=== PATIENT | female | born 2000 | race Caucasian/White ===

== ENCOUNTER 2022-02-26 20:33 | Emergency (ER) | payer OTHER, SELFPAY ==
[2022-02-26 20:37] VITALS: BP 118/76; PULSE 84; RESP 18; TEMP 36.1; O2SAT 98
--- NOTE | 2022-02-26 21:03 | ED.GENADULT ---
HPI - General Adult General Chief complaint: Sore Throat Stated complaint: RIGHT SIDE OF THROAT INFECTED Time Seen by Provider: 02/26/22 20:43 History of Present Illness HPI narrative: This 21-year-old female comes in with sore throat that began a couple days ago. She went to urgent care today and had a negative strep test but was encouraged to come here because of the appearance of her tonsils. She states that she has sore throat but no cough or nasal congestion. She did note some purulence on her tonsils along with a sore throat. She does not report any shortness of breath. Prior to this she has been in good health. Related Data Home Medications Medication Instructions Recorded Confirmed No Known Home Medications 02/26/22 02/26/22 Allergies Allergy/AdvReac Type Severity Reaction Status Date / Time No Known Drug Allergies Allergy Verified 02/26/22 18:05 Review of Systems Status of ROS: Reports: 10 or more systems reviewed and unremarkable except as noted in History and below Narrative: Constitutional: No fevers, no weight gain or loss. Eyes: No discharge. No vision changes. HENT: No congestion, no ear pain. Sore throat as described above. Cardiovascular: No chest pain, no palpitations. Respiratory: No shortness of breath, no wheezes, no cough. Gastrointestinal: No abdominal pain, no vomiting, no diarrhea. Genitourinary: No dysuria, no hematuria. Musculoskeletal: Normal range of motion. Skin: No rashes, no pruritis. Neurological: No dizziness, weakness, sensory change, speech change. Endo/Heme/Allergies: No bruising or bleeding. No polydipsia. Pysch: no suicidality, no anxiety, no insomnia. All other systems reviewed and are negative. PFSH PFSH Social History Smoking Status: Never smoker How often do you have a drink containing alcohol: never AUDIT-C Alcohol total score: 0 Non-prescribed substance use: denies use Exam Narrative: Exam Narrative: Constitutional: Well-developed, well-nourished, no acute distress. HEENT: Normocephalic, atraumatic. Oropharynx shows bilateral tonsillar hypertrophy with exudate. There is no muffled voice. She does not have trismus. There is no cervical anterior lymphadenopathy when palpating her neck. Neck: Normal range of motion. Nontender. Supple. Heart: Intact distal pulses. Lungs: No chest discomfort. No wheezes, rhonchi, or rales. Abdomen: Nontender. Back: Normal range of motion. Extremities: Normal range of motion. No injury. Skin: Intact. No rash. Warm. No erythema or pallor. Neurologic: No altered sensation. No weakness. Alert and oriented. Psychiatric: No suicidality. No anxiety or depression. No insomnia. Nursing notes and vitals signs are reviewed. Const: Vital Signs, click to edit/add: Vital Signs - 24 hr 02/26/22 20:37 Temperature 97.0 F L Pulse Rate [Left P ulse Oximeter] 84 Respiratory Rate 18 Blood Pressure [Le ft Upper Arm] 118/76 Pulse Oximetry 98 Oxygen Delivery Me thod Room Air Course Vital Signs Vital signs: Initial Vital Signs Temperature 97.0 F L 02/26/22 20:37 Temperature Source Temporal Artery Scan 02/26/22 20:37 Pulse Rate 84 02/26/22 20:37 Respiratory Rate 18 02/26/22 20:37 Blood Pressure 118/76 02/26/22 20:37 Blood Pressure Mean 90 02/26/22 20:37 Blood Pressure Position Sitting 02/26/22 20:37 Pulse Oximetry 98 02/26/22 20:37 Oxygen Delivery Method 02/26/22 20:37 Vital Signs Temperature 97.0 F L 02/26/22 20:37 Pulse Rate 84 02/26/22 20:37 Respiratory Rate 18 02/26/22 20:37 Blood Pressure 118/76 02/26/22 20:37 Pulse Oximetry 98 02/26/22 20:37 Oxygen Delivery Method 02/26/22 20:37 Temperature 97.0 F L 02/26/22 20:37 Pulse Rate 84 02/26/22 20:37 Respiratory Rate 18 02/26/22 20:37 Blood Pressure 118/76 02/26/22 20:37 Pulse Oximetry 98 02/26/22 20:37 Oxygen Delivery Method 02/26/22 20:37 Medical Decision Making MDM Narrative Medical decision making narrative: This patient comes in with a sore throat and has enlarged tonsils which are not typical for her. The tonsils are rather symmetric can are not impeding upon the uvula. There is no sign of airway compromise. She does not have any muffled voice or trismus. She does not have any palpable cervical lymphadenopathy. She has not had any fevers. This patient is not showing any signs or symptoms suspicious for a peritonsillar abscess. I did describe findings that would indicate further need for workup and evaluation in this regard. Nevertheless she does have symptoms that are suspicious for a tonsillitis that may benefit from an antibiotic. A prescription for Augmentin is provided. She also received few tablets of Toradol for pain relief. The patient was given a oral dose of dexamethasone 10 mg in the emergency department also. Discharge Plan Discharge Clinical Impression: Acute tonsillitis Patient Disposition: Home, Self-Care Condition: Stable Instructions: Tonsillitis (ED) Additional Instructions: Take medication as needed and indicated. Return if worsening symptoms occur such as muffled voice or difficulty opening the mouth or fever. Follow up with MD otherwise as needed. Prescriptions: No Action No Known Home Medications Follow Up/Referrals: Rashad Bardales MD [Primary Care Provider] - Stand Alone Forms: [email or web address] Info Instructions
[2022-02-26] MEDS: dexAMETHasone 10 MG/ML inj PO (21:18)
== END 2022-02-26 21:32 | disposition home or self-care (01) ==
PROVIDERS: Emergency Provider Emergency Medicine Emergency Medical Services; PCP Family Medicine
DX: J03.90 Acute tonsillitis, unspecified (principal)
CPT/HCPCS: 99283; 99284; J1100

== ENCOUNTER 2022-06-20 20:39 | Emergency (ER) | payer OTHER, SELFPAY ==
[2022-06-20 20:47] VITALS: BP 133/83; PULSE 78; RESP 18; TEMP 36.6; O2SAT 97; BMI 27.9
[2022-06-20 21:30] VITALS: BP 112/73; PULSE 75; RESP 16; O2SAT 95
--- NOTE | 2022-06-20 21:33 | ED.CHESTPAIN ---
HPI - Chest Pain General Chief Complaint: Chest Pain Stated Complaint: Chest pain, Shooting pain in the R side of neck Time Seen by Provider: 06/20/22 21:11 History of Present Illness HPI narrative: 21-year-old young woman here with Mom with concern of chest pain. Woke this morning with some right-sided neck pain which she demonstrates to the sternocleidomastoid. Does not recall any particular injury. Over the last 4-5 hours though has had development of some left-sided chest pain. With either of these pain she does not note exacerbating or relieving factors although when pressed sounds like it feels better to sit up for the chest discomfort and little worse when she lays down. Looks comfortable at this time I would say she says the pain is still present. No dental issues. No fever. No cough or cold symptoms. Worried because grandfather had a heart attack. Father has had rhythm issues but it does not sound like any vascular disease. Pain is not pleuritic. No leg pain or swelling although notes hitting her right leg on a farm implement and that kind of hurt. Denies recent cough cold symptoms or viral type illness. No heartburn. Related Data Home Medications Medication Instructions Recorded Confirmed No Known Home Medications 02/26/22 02/26/22 Allergies Allergy/AdvReac Type Severity Reaction Status Date / Time No Known Drug Allergies Allergy Verified 06/20/22 20:46 Review of Systems Status of ROS Reports: 6 or more systems reviewed and unremarkable except as noted in History and below [facility] Social History Smoking Status: Never smoker Do you use any of these nicotine containing products: None Second hand tobacco smoke exposure: No How often do you have a drink containing alcohol: never How often do you have six or more drinks on one occasion: Never AUDIT-C Alcohol total score: 0 Non-prescribed substance use: denies use service: No Exam Narrative Exam Narrative: Tall. Well built. NAD. Laughing in texting when I enter the room. Breathing easily. Skin is warm and dry without evidence of injury the areas of pain. Oropharynx is with good repaired dentition. No swellings. Neck is supple. Little sore to palpation along the right sternocleidomastoid. No lymphadenopathy. There is no supraclavicular crepitus. Lungs are clear equal expansion excursion. Cardiovascular with regular rate and rhythm. Examining the chest wall there is soreness to palpation along the left sternal border and then down toward the xiphoid. She is moderately sore to palpation along the left rhomboids somewhat on the right as well but not as much. Extremities are without edema and they are well perfused. Nontender. Const Vital Signs, click to edit/add: Vital Signs - 24 hr 06/20/22 20:47 06/20/22 21:30 06/20/22 22:00 Temperature 98 F Pulse Rate [Pulse Oximeter] 78 75 68 Respiratory Rate 18 16 16 Blood Pressure [Left Upper Arm] 133/83 112/73 109/76 Pulse Oximetry 97 95 96 Oxygen Delivery Method Room Air Room Air Room Air 06/20/22 22:30 06/20/22 22:32 06/20/22 23:00 Temperature Pulse Rate [Pulse Oximeter] 64 75 75 Respiratory Rate 16 16 16 Blood Pressure [Left Upper Arm] 87/58 L 118/85 115/77 Pulse Oximetry 97 97 98 Oxygen Delivery Method Room Air Room Air Room Air Documenting provider has reviewed patient's vital signs: yes Course Vital Signs Vital signs: Initial Vital Signs Temperature 98 F 06/20/22 20:47 Temperature Source Temporal Artery Scan 06/20/22 20:47 Pulse Rate 78 06/20/22 20:47 Pulse Rhythm 06/20/22 20:47 Respiratory Rate 18 06/20/22 20:47 Blood Pressure 133/83 06/20/22 20:47 Blood Pressure Mean 99 06/20/22 20:47 Blood Pressure Position Supine 06/20/22 20:47 Pulse Oximetry 97 06/20/22 20:47 Oxygen Delivery Method 06/20/22 20:47 Vital Signs Temperature 98 F 06/20/22 20:47 Pulse Rate 78 06/20/22 20:47 Respiratory Rate 18 06/20/22 20:47 Blood Pressure 133/83 06/20/22 20:47 Pulse Oximetry 97 06/20/22 20:47 Oxygen Delivery Method 06/20/22 20:47 Temperature 98 F 06/20/22 20:47 Pulse Rate 75 06/20/22 23:00 Respiratory Rate 16 06/20/22 23:00 Blood Pressure 115/77 06/20/22 23:00 Pulse Oximetry 98 06/20/22 23:00 Oxygen Delivery Method 06/20/22 23:00 MDM - Chest Pain MDM Narrative Medical decision making narrative: I think any workup will be low yield here. Does appear to have chest wall, anterior and posterior, pain. However I understand concerns. Certainly possible for pneumomediastinum or pneumothorax. Perhaps a rhythm issue though has not felt any palpitations nor reporting any lightheadedness. Pulmonary embolus? Pericarditis/costochondritis. We are enough hours into episode that perhaps lab evaluation would be useful. This was done. Laboratory assessment is unremarkable; this did include D-dimer. Chest x-ray by my read is normal as well. Lab Data Attestation: I reviewed the patient's lab results. Labs: Lab Results 06/20/22 06/20/22 06/20/22 Range/Units 21:33 21:33 21:33 D-Dimer Quant (PE/DVT) < 0.27 (0.00-0.50) ug/ml Troponin I < 0.01 L (0.01-0.04) ng/mL C-Reactive Protein < 0.5 L (0.5-1.0) mg/dL POC Troponin I 0.00 L (0.01-0.04) ng/ml Discharge Plan Discharge Clinical Impression: Strain of sternocleidomastoid muscle, Chest wall pain, Rhomboid muscle pain Patient Disposition: Home w/ Parent or Adult Condition: Improved Additional Instructions: Consider taking up to 600 mg of ibuprofen 3 times daily over the next 4-5 days or up to 500 mg of naproxen 2 times daily over the same time. See handout on stretches for the upper back. This might be affecting your discomfort in the front. Think this might also help your neck. Return for marked increase in pain particularly if accompanied by shortness of breath. Prescriptions: No Action No Known Home Medications Follow Up/Referrals: Rashad Bardales MD [Primary Care Provider] - Stand Alone Forms: [employer] Info Instructions
[2022-06-20 22:00] VITALS: BP 109/76; PULSE 68; RESP 16; O2SAT 96
[2022-06-20 22:07] LABS: C Reactive Protein* < 0.5 mg/dL (0.5-1.0); D Dimer Quantitative* < 0.27 ug/ml (0.00-0.50)
[2022-06-20 22:17] LABS: Troponin I* < 0.01 ng/mL (0.01-0.04)
[2022-06-20 22:30] VITALS: BP 87/58; PULSE 64; RESP 16; O2SAT 97
[2022-06-20 22:32] VITALS: BP 118/85; PULSE 75; RESP 16; O2SAT 97
--- NOTE | 2022-06-20 22:35 | CRLHL7_ITS ---
For Patients: As a result of the Cures Act, medical imaging exams and procedure reports are released immediately into your electronic medical record. You may view this report before your referring provider. If you have questions, please contact your health care provider. INDICATION: Midsternal chest pain TECHNIQUE: Chest radiograph 1 view COMPARISON: None FINDINGS: Mediastinum: The mediastinum is normal in appearance. The heart silhouette is normal in size and morphology. Lung: Both lungs are unremarkable in appearance. No sign of pleural effusion seen. No pneumothorax is identified. Bone and Soft tissue: Unremarkable for age. IMPRESSION: 1. No acute cardiopulmonary disease is seen. Dictated by: Ariel Hardwick MD @ 06/20/2022 23:06:46 (Electronically Signed)
[2022-06-20 23:00] VITALS: BP 115/77; PULSE 75; RESP 16; O2SAT 98
== END 2022-06-20 23:33 | disposition home or self-care (01) ==
PROVIDERS: Emergency Provider Family Medicine; PCP Family Medicine
DX: S16.1XXA Strain of muscle, fascia and tendon at neck level, initial encounter (principal); R07.89 Other chest pain
CPT/HCPCS: 36415; 71045; 84484; 85379; 86140; 93005; 99284; 99285

== ENCOUNTER 2022-06-30 09:59 | Outpatient (CLI) | payer OTHER, SELFPAY ==
[2022-06-30 13:57] LABS: Albumin* 4.9 g/dL (3.3-5.0); Chloride* 106 mmol/L (96-114)
[2022-06-30 13:58] LABS: Potassium* 4.4 mmol/L (3.6-5.1); Sodium* 140 mmol/L (135-149)
[2022-06-30 14:00] LABS: Alanine Aminotransferase* 17 U/L (4-35); Alkaline Phosphatase* 57 U/L (40-150); Aspartate Amino Transferase* 22 U/L (12-35); Bilirubin Total* 0.8 mg/dL (0.1-1.5); Blood Urea Nitrogen* 14 mg/dL (5-24); Carbon Dioxide* 25 mmol/L (20-32); Creatinine* 0.6 mg/dL (0.6-1.2); Estimated Glomerular Filt Rate 133 ml/min; Glucose* 87 mg/dL (60-115); Total Protein* 7.7 g/dL (6.0-8.3)
[2022-06-30 14:01] LABS: Calcium* 9.7 mg/dL (8.7-10.8)
== END 2022-06-30 10:00 | disposition home or self-care (01) ==
PROVIDERS: PCP Family Medicine; Visit Provider Family Medicine
DX: R53.83 Other fatigue (principal); R07.89 Other chest pain
CPT/HCPCS: 80053; 84443

== ENCOUNTER 2022-07-30 22:42 | Emergency (ER) | payer OTHER, SELFPAY ==
[2022-07-30 22:58] VITALS: BP 120/76; PULSE 68; RESP 18; TEMP 36.4; O2SAT 98; BMI 61.5
--- NOTE | 2022-07-31 00:16 | US_ITS ---
Patient: NANCY CARUSO Facility:?[facility] Patient ID:?[id number] Site Patient ID:?[id number]. Site :?[id number] Study:?US-Pelvis -07/31/2022 12:57:18 AM Ordering Physician:?UNKNOWN UNKNOWN Final Report: INDICATION: Pelvic pain TECHNIQUE: Ultrasound pelvis transvaginal. Endovaginal imaging was performed to better visualize the endometrium and ovaries. Real-time kim scale sonographic images with spectral and color Doppler imaging of the ovaries were obtained. COMPARISON: 10/24/2021 FINDINGS: Uterus: 8.4 x 5 x 3.4 cm. Normal echotexture of the myometrium noted with no masses are seen. Endometrium: 12 mm. No sign of endometrial mass or fluid present. Right ovary: 3.6 x 2.7 x 1.6 cm. The right ovary is normal in appearance and echotexture. Arterial blood flow seen within the right ovary. Left ovary: 5.2 x 2.4 x 2.7 cm. There may be a small complex cyst present in the left ovary measuring 2.3 cm that may be a corpus luteum. Arterial blood flow seen within the left ovary. Cul-de-sac: No significant ascites noted. IMPRESSION: 1. Unremarkable pelvic ultrasound. Dictated by Ariel Hardwick MD @ 07/31/2022 1:05:11 AM Dictated by: Ariel Hardwick MD @ 07/31/2022 01:05:31 Signed by:?Ariel Hardwick MD @07/31/2022 1:05:31 AM (Electronic Signature)
[2022-07-31 00:33] LABS: Basophils Percent Auto 0.1 % (0.0-3.0); Hematocrit 41.2 % (33.0-51.0); Hemoglobin* 13.8 gm/dL (12.0-16.0); Lymphocytes Percent Auto 35.2 % (20-44); Mean Corpuscular HGB Conc 34 gm/dL (32-36); Mean Corpuscular Hemoglobin 30 pg (26-34); Mean Corpuscular Volume 89 fL (80-100); Monocytes Percent Auto 7.6 % (0.0-11.0); Neutrophils Percent Auto 55.4 % (42.0-72.0); Platelet Count* 210 K/uL (140-440); RDW Coefficient of Variation % 12.3 % (11.5-15.5); Red Blood Count 4.64 m/uL (4.00-5.20); White Blood Count* 9.08 K/uL (4.50-11.00)
[2022-07-31 00:34] LABS: Basophils Absolute Auto 0.01 K/uL (0.00-0.30); Eosinophils Absolute Auto 0.09 K/uL (0.00-0.50); Immature Granulocytes Abs Auto 0.06 K/uL (0.00-0.30); Immature Granulocytes Pct Auto 0.7 %; Neutrophils Absolute Auto 5.03 K/uL (1.7-7.0)
[2022-07-31 00:36] LABS: Slide Review Reflex No
[2022-07-31 00:39] LABS: Appearance Urine Clear (Clear); Bilirubin Urine Negative (Negative); Blood Urine Negative (Negative); Color Urine Yellow (Yellow); Glucose Urine Negative (Negative); Ketones Urine Trace (Negative); Leukocyte Esterase Urine Negative (Negative); Nitrite Urine Negative (Negative); Protein Urine Negative (Negative); Specific Gravity Urine 1.025 (1.000-1.030); Urobilinogen Urine 0.2 (0.2-1.0); pH Urine 6.5 (5.0-8.5)
[2022-07-31 00:40] LABS: Chloride* 107 mmol/L (96-114); Sodium* 138 mmol/L (135-149)
[2022-07-31 00:41] LABS: Potassium* 3.9 mmol/L (3.6-5.1)
[2022-07-31 00:43] LABS: Creatinine* 0.6 mg/dL (0.6-1.2); Est. Creatinine Clearance* 168.56; Estimated Glomerular Filt Rate 133 ml/min
[2022-07-31 00:44] LABS: Blood Urea Nitrogen* 18 mg/dL (5-24); Calcium* 8.9 mg/dL (8.7-10.8); Carbon Dioxide* 23 mmol/L (20-32); Glucose* 87 mg/dL (60-115)
--- NOTE | 2022-07-31 00:48 | ED.GENADULT ---
HPI - General Adult General Date Seen: 07/31/22 Chief complaint: Abdominal Pain Stated complaint: Abdominal Pain Time Seen by Provider: 07/31/22 00:03 Source: patient Mode of arrival: ambulatory Limitations: no limitations History of Present Illness HPI narrative: Patient is a 21-year-old female who comes in with three days of suprapubic pain. Tylenol and ibuprofen do not relieves the pain. She has had no fevers or chills. No dysuria, urgency, frequency. No vaginal discharge. She is not sexually active. LMP was about two and half weeks ago. She has a history of ovarian cyst x2. Movement does not change this pain. Eating and drinking does not change the pain. She denies diarrhea or constipation. Related Data Home Medications Medication Instructions Recorded Confirmed No Known Home Medications 02/26/22 06/30/22 Allergies Allergy/AdvReac Type Severity Reaction Status Date / Time No Known Drug Allergies Allergy Verified 07/30/22 22:58 Review of Systems Narrative: Review of systems is outlined above otherwise noted to be negative. [facility] Medical History Ruptured cyst of left ovary Social History Smoking Status: Never smoker Do you use any of these nicotine containing products: None Second hand tobacco smoke exposure: No How often do you have a drink containing alcohol: never How often do you have six or more drinks on one occasion: Never AUDIT-C Alcohol total score: 0 Non-prescribed substance use: denies use service: No Exam Narrative: Exam Narrative: Vitals noted. HEENT: Conjunctiva clear. Neck is supple without adenopathy, thyromegaly. Lungs: Clear to auscultation in all bradshaw. No wheezes, rales, rhonchi. Heart: Regular rate and rhythm without murmur. Abdomen: Soft and nontender. No guarding, rigidity, rebound. Bowel sounds are normal. No palpable masses. Extremities: No cyanosis or edema. Good distal pulses. Skin: No abnormalities noted of the exposed skin. Neurologic: Awake, alert, fully oriented. Neurologic exam is nonfocal. Const: Vital Signs, click to edit/add: Vital Signs - 24 hr 07/30/22 22:58 Temperature 97.5 F L Pulse Rate [Pulse Oximeter] 68 Respiratory Rate 18 Blood Pressure [Ri ght Upper Arm] 120/76 Pulse Oximetry 98 Oxygen Delivery Me thod Room Air Course Course Hospital Course: Patient was seen and examined. She denied a need for pain medication. Labs and a pelvic ultrasound are ordered. Reevaluation(s) Reevaluation #1: CBC, BMP, UA are completely normal. Ultrasound shows a left hemorrhagic ovarian cyst with some free fluid in the pelvis. It is otherwise unremarkable. Vital Signs Vital signs: Initial Vital Signs Temperature 97.5 F L 07/30/22 22:58 Temperature Source Temporal Artery Scan 07/30/22 22:58 Pulse Rate 68 07/30/22 22:58 Respiratory Rate 18 07/30/22 22:58 Blood Pressure 120/76 07/30/22 22:58 Blood Pressure Mean 90 07/30/22 22:58 Pulse Oximetry 98 07/30/22 22:58 Oxygen Delivery Method 07/30/22 22:58 Vital Signs Temperature 97.5 F L 07/30/22 22:58 Pulse Rate 68 07/30/22 22:58 Respiratory Rate 18 07/30/22 22:58 Blood Pressure 120/76 07/30/22 22:58 Pulse Oximetry 98 07/30/22 22:58 Oxygen Delivery Method 07/30/22 22:58 Temperature 97.5 F L 07/30/22 22:58 Pulse Rate 68 07/30/22 22:58 Respiratory Rate 18 07/30/22 22:58 Blood Pressure 120/76 07/30/22 22:58 Pulse Oximetry 98 07/30/22 22:58 Oxygen Delivery Method 07/30/22 22:58 Medical Decision Making Lab Data Labs: Lab Results 07/31/22 07/31/22 07/31/22 Range/Units 00:16 00:16 00:19 WBC 9.08 (4.50-11.00) K/uL RBC 4.64 (4.00-5.20) m/uL Hgb 13.8 (12.0-16.0) gm/dL Hct 41.2 (33.0-51.0) % MCV 89 (80-100) fL MCH 30 (26-34) pg MCHC 34 (32-36) gm/dL RDW Coeff of Kary 12.3 (11.5-15.5) % Plt Count 210 (140-440) K/uL Neut % (Auto) 55.4 (42.0-72.0) % Lymph % (Auto) 35.2 (20-44) % Hamblen % (Auto) 7.6 (0.0-11.0) % Eos % (Auto) 1.0 (0.0-7.0) % Baso % (Auto) 0.1 (0.0-3.0) % Neut # (Auto) 5.03 (1.7-7.0) K/uL Lymph # (Auto) 3.20 H (0.90-2.90) K/uL Hamblen # (Auto) 0.70 (0.00-0.90) K/UL Eos # (Auto) 0.09 (0.00-0.50) K/uL Baso # (Auto) 0.01 (0.00-0.30) K/uL Sodium 138 (135-149) mmol/L Potassium 3.9 (3.6-5.1) mmol/L Chloride 107 (96-114) mmol/L Carbon Dioxide 23 (20-32) mmol/L BUN 18 (5-24) mg/dL Creatinine 0.6 (0.6-1.2) mg/dL Estimated Creat Clear 168.56 Estimated GFR 133 ml/min Glucose 87 (60-115) mg/dL Calcium 8.9 (8.7-10.8) mg/dL Urine Color Yellow (Yellow) Urine Appearance Clear (Clear) Urine pH 6.5 (5.0-8.5) Ur Specific [place] 1.025 (1.000-1.030) Urine Protein Negative (Negative) Urine Glucose (UA) Negative (Negative) Urine Ketones Trace A (Negative) Urine Blood Negative (Negative) Urine Nitrite Negative (Negative) Urine Bilirubin Negative (Negative) Urine Urobilinogen 0.2 (0.2-1.0) Ur Leukocyte Esterase Negative (Negative) Discharge Plan Discharge Clinical Impression: Hemorrhagic cyst of left ovary Patient Disposition: Home, Self-Care Condition: Stable Instructions: Ovarian Cyst (ED) Additional Instructions: Ibuprofen 800 mg 3 times daily, Tylenol 1000 mg 3 times daily. Follow up either with Dr. Bardales or your regional retail sales manager discuss options to prevent cyst formation. Follow-up if pain is worsening. Prescriptions: No Action No Known Home Medications Follow Up/Referrals: Rashad Bardales MD [Primary Care Provider] - Stand Alone Forms: [employer] Info Instructions
[2022-07-31 01:00] VITALS: BP 138/74; PULSE 63; RESP 18; TEMP 36.6; O2SAT 98
== END 2022-07-31 01:31 | disposition home or self-care (01) ==
LOC: ED 07-31 01:03
PROVIDERS: Emergency Provider Family Medicine; PCP Family Medicine
DX: N83.292 Other ovarian cyst, left side (principal)
CPT/HCPCS: 36415; 76830; 80048; 81003; 85025; 93976; 99282; 99283; 99284

== ENCOUNTER 2023-05-20 09:39 | Outpatient (CLI) | payer OTHER, SELFPAY | END 2023-05-20 09:40 | disposition home or self-care (01) | LOC: FRMREF 09:40 | PROVIDERS: PCP Family Medicine; Visit Provider Registered Nurse | DX: R30.0 Dysuria (principal) | CPT/HCPCS: 87086 ==

== ENCOUNTER 2023-11-25 15:07 | Outpatient (CLI) | payer BC, OTHER, SELFPAY ==
--- OUTSIDE RECORDS SUMMARY | 2023-11-25 15:09 | XMS_ITS | Clinical Summary ---
Author Organization [facility] Address [place], [place] [address] Care Team Providers Care Music Therapist Name Role Phone [facility] Primary Care Provider [phone] Allergies No known active allergies Medications Medication Sig Dispensed Refills Start Date End Date Status gentamicin (GENOPTIC) 0.3 % ophthalmic solutionIndications:Ranulfo mejia, viviana Place 1-2 Drops into left eye 4 times daily. Use for 24 hours after symptoms have totally resolved. 1 Bottle 0 01/13/2016 Active Active Problems No known active problems Immunizations Name Administration Dates Next Due DTaP 12/14/2007, 4,02/21/2003,12/27,2002 HIB PRP-T (ActHIB,Hiberix) 12/14/2003,,2002,10/30 Hepatitis A (Peds) 12/23/2011,02/22/2009 Hepatitis B (Peds) 08/17/2003,2002, 003 Inactivated Polio Vaccine 12/14/2007,,2002,10/30 MMR 12/14/2007,12/14/2003 Meningococcal Vaccine (Menactra) 01/14/2015 Pneumococcal conj 7-Valent (Prevnar 7) 3,2002,2002 Tdap 01/14/2015 Varicella Vaccine 02/28/2009,12/14/2007,08/17/19 04 Social History Tobacco Use Types Packs/Day Years Used Date Smoking Tobacco: Never Smokeless Tobacco: Never Tobacco Cessation:Counseling Given: No Alcohol Use Standard Drinks/Week Comments No 0 (1 standard drink = 0.6 oz pur e alcohol) Sex and Gender Information Value Date Recorded Sex Assigned at Not on file Gender Identity Not on file Sexual Orientation Not on file Obstetrics History Last Filed Vital Signs Vital Sign Reading Time Taken Comments Blood Pressure 120/77 06/21/2022 10:30 PM ICT TRAINER Pulse 84 06/21/2022 10:31 PM ICT TRAINER Temperature 37 ??C (98.6 ??F) 06/21/2022 4:55 PM ICT TRAINER Respiratory Rate 16 06/21/2022 10:30 PM ICT TRAINER Oxygen Saturation 100% 06/21/2022 10:31 PM ICT TRAINER Inhaled Oxygen Concentration - - Weight 93 kg (205 lb) 06/21/2022 4:55 PM ICT TRAINER Height 180.3 cm (5' 11) 06/21/2022 4:55 PM ICT TRAINER Body Mass Index 28.59 06/21/2022 4:55 PM ICT TRAINER Plan of Treatment Health Maintenance Due Date Last Done Comments Depression screening for age 12+ 01/12/2017 01/13/2016 HIV for age 15-65 2017 HPV series for age 9-26 (1 - 3-dose series) 2017 BMI (ht and wt on same day) for age 18+ 2020 Hepatitis C screening for ag e 18-79 2020 COVID-19 vaccine series (2022-24 season) 2023 Pap test for age 21-65 2023 Influenza for age 9-49 03/05/2024 Tetanus booster 01/14/2025 01/14/2015 Pneumococcal series for age 6-64 Aged Out 02/21/2003, 2002, 2002 No longer eligible based on patient's age to complete this topic Meningococcal series for age 11-21 Aged Out 01/14/2015 No longer eligible b ased on patient's age to complete this topic Tdap Completed 01/14/2015 Care Teams Music Therapist Relationship Specialty Start Date End Date [facility] [address] [place] [address] PCP - General 01/13/18
[2023-11-25 23:09] LABS: Chlamydia DNA Amplified* NOT DETECTED (No Detected); GC DNA Amplified* NOT DETECTED (No Detected)
== END 2023-11-25 15:08 | disposition home or self-care (01) ==
LOC: FRMREF 15:08
PROVIDERS: PCP Family Medicine; Visit Provider Registered Nurse
DX: Z11.3 Encounter for screening for infections with a predominantly sexual mode of transmission (principal)
CPT/HCPCS: 87491; 87591